=== PATIENT | male | born 1985 | race African-American/Black ===

== ENCOUNTER 2021-07-07 12:47 | Outpatient (CLI) | payer OTHER ==
[2021-07-07 13:53] VITALS: BP 131/90
--- NOTE | 2021-07-07 13:53 | SLEEP CARE CONSULTATION ---
Information from patient questionnaire entered by Solange Salcedo. I have reviewed and concur with the information entered by Solange Salcedo. This document represents the service I personally performed and the decisions made by me, Lorelei Reagan ARNP. History of Present Illness Service Date and Time: 07/07/2021 1247 Reason for Visit: New patient Chief Complaint: reports: Unrefreshed sleep, Snoring, Excessive daytime sleepiness, Observed pauses in breathing, Frequent awakenings at night Date of Onset: 11/2020 Usual bedtime: 2200 Time it takes to fall asleep: 20-30 minutes Snores at night: Yes Observed to quit breathing while asleep: Yes Sleeps alone due to snoring: No Number of times waking at night: 2-3 Reasons for waking at night: reports: Bathroom, Other (unknown reason). denies: Choking, Snoring, Gasping for air Toss, Turn, or Twitch while sleeping: Yes Recalls having dreams: Yes Usually gets out of bed at: 0530; weekends 0700 Feels refreshed in the morning: No Morning headache: No Sleepy or fatigued during the day: Yes (can fall asleep if he is not staying busy) Ever fallen asleep while driving: No Takes day naps: Yes (usually on the weekend only) Dreams during day naps: No Prior sleep studies: No Additional HPI information: I had the pleasure of seeing DEANNE RODRIGUEZ today regarding the possibility of him having a sleep disorder. His current complaints are frequent night awakenings, observed pauses in breathing, snoring and unrefreshed sleep. He states that his girlfriend tells him that he stops breathing once in a while when sleeping. He snores loudly but she can still sleep in same room. She has told him that the snoring seems to be getting louder. He does not feel rested in the mornings. He gets up between 1-3 times at night for the bathroom or no reason. He states that when he does not stay busy he can fall asleep easily. He denies drowsy driving or accidents. He has a history of hypertension, anxiety and depression. 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 Patient is and lives in [place]. Have you smoked in the past 12 months: Yes (vapes) Cigarettes per day (20/pack): 3 (a few a day) Years of smokin Quit date: 06/04/2009 Smoking Pack Years: 0.4 Alcohol use: Yes Alcohol amount and frequency: 1-2, 4 days/week Caffeine use: Yes Caffeine amount and frequency: 1-2/day Family History Family history of sleep disordered breathing: Yes Family Hx Sleep Apnea: Father: Snoring Allergies and Home Medications Drug allergies reviewed: Yes (NKDA) Home medication list reviewed: Yes Allergy and home medication list: Amlodipine 10 mg, daily Chlorthalidone 25 mg, daily Review of Systems Weight gain over past 5 years: 50 Cardiovascular: reports: high blood pressure Respiratory: denies: shortness of breath Gastrointestinal: denies: heartburn Neurological: denies: headaches, head trauma Psychiatric: reports: anxiety, depression Ear/Nose/Throat: denies: injury to nose, tonsillectomy Immunologic: reports: itching. denies: allergies to food or environment Physical Exam Blood Pressure: 131/90 Cuff size: wrist Heart Rate: 90 O2 Saturation: 96 Height: 6 ft 1 in Weight: 255 lb Body Mass Index: 33.6 BMI Classification: Obese Neck circumference: 16.65 (inches) Nostrils: patent to airflow Mouth and throat: narrow oropharynx Soft palate: long Hard palate: normal Uvula: normal Uvula visualization: 50% Mallampati Class II Tongue: enlarged in size with teeth jaime on lateral edges Tonsils: 1+ Neck: normal w/o lymphadenopathy or thyromegaly Heart: regular rate and rhythm Lungs: clear bilaterally Impression and Plan 1. Suspected Obstructive Sleep Apnea-Hypopnea Syndrome, as suggested by a history of loud and irregular snoring, observed cessation of breath while asleep, frequent awakening during the night, unrefreshed sleep, and excessive daytime sleepiness. Narrow oropharynx and obesity are common predisposing factors for obstructive sleep apnea-hypopnea syndrome. I recommend proceeding to polysomnography to confirm the diagnosis and to assess severity. If the patient has significant sleep disordered breathing, a manual CPAP titration study will also be performed to find the optimal treatment pressure. I informed the patient of what the sleep studies involve and after some discussion, obtained agreement to proceed. The pathophysiology of obstructive sleep apnea-hypopnea syndrome was discussed with the patient and health risks of cardiovascular and cerebrovascular disease if not treated. AAS brochure for obstructive sleep apnea-hypopnea syndrome given and reviewed. Risks of drowsy driving discussed in detail and patient advised to avoid long distance driving and to conductor pullman at the first sign of drowsiness. Patient agreed to plan. * Schedule polysomnography +- manual CPAP titration study and return in 1-2 weeks after the study to discuss result and initiate therapy. * Avoid long distance driving or driving when feeling sleepy. * Avoid alcohol, sedative and muscle relaxant around bedtime. * Attempt to lose weight. * Review instructions provided by trained office staff on how to prepare for the sleep study. * Return for follow-up after sleep study completed. Counseling Topics: Weight loss health impact Visit Type: In Office Time Spent with Patient (minutes): 30 Provider Statement: I spent 100% of the Face to Face Visit with the patient with greater than 50% spent counseling the patient and coordination of care.
== END 2021-07-07 12:48 | disposition home or self-care (01) ==
LOC: SC 12:47
PROVIDERS: ATTEND Nurse Practitioner Family
DX: R06.83 Snoring (principal); R06.81 Apnea, not elsewhere classified; G47.10 Hypersomnia, unspecified; G47.8 Other sleep disorders; E66.9 Obesity, unspecified; Z68.33 Body mass index [BMI] 33.0-33.9, adult; F17.290 Nicotine dependence, other tobacco product, uncomplicated
CPT/HCPCS: 99203; 99212

== ENCOUNTER 2021-07-13 09:53 | Outpatient (CLI) | payer OTHER | END 2021-07-13 09:54 | disposition home or self-care (01) | LOC: SC 09:53 | PROVIDERS: ATTEND Nurse Practitioner Family | DX: G47.33 Obstructive sleep apnea (adult) (pediatric) (principal); R09.02 Hypoxemia | CPT/HCPCS: 95806 ==

== ENCOUNTER 2021-07-15 12:39 | Outpatient (CLI) | payer OTHER ==
--- NOTE | 2021-07-15 13:14 | SLEEP CARE CONSULTATION ---
Information from patient questionnaire entered by Solange Salcedo. I have reviewed and concur with the information entered by Solange Salcedo. This document represents the service I personally performed and the decisions made by me, Lorelei Reagan ARNP. History of Present Illness Service Date and Time: 07/15/2021 1239 Initial [place] Sleepiness Scale score: 9 (in 06/2021) Current [place] Sleepiness Scale score: 8 Additional HPI information: DEANNE RODRIGUEZ returns for follow up and results of the recently performed home sleep study. I explained the pathophysiology behind obstructive sleep apnea. We then spent quite a bit of time discussing different treatment options. For mild obstructive sleep apnea, surgery and oral appliance are alternatives to nasal CPAP therapy but in moderate or severe cases, nasal CPAP is the most effective a nd reliable treatment. Because apnea is primarily in supine position, then positional management therapy could be effective. Methods discussed such as positioning with pillows, using a T-shirt with tennis balls in the back, and shown commercial products that have a pillow format on back to prevent supine sleep. I reviewed the impact of weight changes on sleep apnea and strongly recommended losing weight. After some discussion, the patient opted to go with the nasal CPAP therapy. Nasal autoCPAP set at 4-15 cmH20 will be ordered with rationale explained. A manual titration study will be ordered if unable to find optimal pressure with office adjustments. I explained how CPAP machine works with sample devices Respironics Dreamstation and ResWinster [id number] and what to expect when using the machine. Using CPAP every night in order to get used to it was emphasized. Patient advised to put CPAP mask on before getting into bed so as not to fall asleep without CPAP. To assist acclimation to CPAP use, it could also be used for a short time during day while reading or watching TV. The patient was instructed to call the CPAP supplier to discuss any mechanical problem that may occur. If the mask given is uncomfortable or is difficult to keep on through the night even with adjustment, contact the CPAP supplier as many will replace with another mask style if notified before 30 days. If snoring or perceives is not getting enough air or too much air from the machine, notify this office. [facility] patient education PAP tips reviewed and given to patient. Patient counseled not drink alcohol less than 4 hours before bedtime as it can increase snoring and apnea. Patient was cautioned about risks of drowsy driving until sleepiness symptoms resolve. Sleep Study - Results Type of Sleep Study: Home sleep study Prior sleep studies: Yes Year and Where: 06/2021 [facility] Polysomnography/Home Sleep Study results: Physician Impression: The quality of the study is good. The length of the study is adequate (> 240 minutes). Please also see the tabulated and graphic data. 1. Obstructive Sleep Apnea-Hypopnea (ICD-10 G47.33), moderate, with an AHI of 16.7/hr and mabel SaO2 of 71%. During the study, the patient had 80 apneas (79 obstructive, 0 central, 1 mixed) and 52 hypopneas. The longest episode lasted 104.0 seconds. The respiratory events occurred independently of body position (supine AHI was 16.9 and non-supine, 15.18). 2. Hypoxemia (ICD-10 R09.02), moderate, with the lowest oxygen saturation of 71 % and 17.5 minutes with SaO2 under 90%. Baseline oxygen saturation was normal (Average oxygen saturation was 94%). Allergies and Home Medications Home medication list reviewed: Yes (no changes) Review of Systems Review of systems same as previous: Yes (no changes) Physical Exam Heart Rate: 85 O2 Saturation: 98 Height: 6 ft 1 in Weight: 256 lb Body Mass Index: 33.7 BMI Classification: Obese Impression and Plan 1. Obstructive Sleep Apnea-Hypopnea Syndrome, moderate, with lowest oxygen saturation of 71%. Obviously this is the cause of the patients symptoms of unrefreshed sleep, and excessive daytime sleepiness. Positive pressure therapy could benefit hypertension, anxiety and depression. As mentioned above, the patient will be started on nasal autoCPAP therapy with pressure set at 4-15 cmH2 O. A manual titration study will be completed if unable to find optimal treatment pressure with office adjustments. Compliance guidelines also reviewed. A copy of compliance guidelines will be given for reference at check out. 2. Hypoxemia, moderate, with the lowest oxygen saturation of 71 % and 17.5 minutes with SaO2 under 90%. His baseline oxygen saturation was normal with an average oxygen saturation of 94%. * Nasal auto CPAP therapy, pressure at 4-15 cm H2O. * Attempt to lose weight. * Avoid alcohol consumption near bedtime. * The patient is again cautioned about driving until sleepiness completely resolves. * Return one month after CPAP obtained. I will assess response to therapy and compliance at that time. Counseling Topics: Weight loss health impact Visit Type: In Office Time Spent with Patient (minutes): 20 Provider Statement: I spent 100% of the Face to Face Visit with the patient with greater than 50% spent counseling the patient and coordination of care.
== END 2021-07-15 12:40 | disposition home or self-care (01) ==
LOC: SC 12:39
PROVIDERS: ATTEND Nurse Practitioner Family
DX: G47.33 Obstructive sleep apnea (adult) (pediatric) (principal); R09.02 Hypoxemia; E66.9 Obesity, unspecified; Z68.33 Body mass index [BMI] 33.0-33.9, adult
CPT/HCPCS: 99212; 99213

== ENCOUNTER 2021-12-28 13:56 | Outpatient (CLI) | payer OTHER ==
--- NOTE | 2021-12-28 14:20 | SLEEP CARE CONSULTATION ---
Information from patient questionnaire entered by Michael Peraza MA. I have reviewed and concur with the information entered by Michael Peraza MA. This document represents the service I personally performed and the decisions made by , Lorelei Reagan ARNP. History of Present Illness Service Date and Time: 12/28/2021 1356 Previous diagnosis: Moderate, Obstructive Sleep Apnea-Hypopnea Syndrome AHI: 16.7 (in 2020) Reason for follow up: first compliance (SET UP 09/14/2021., RESMED, ) Equipment type: CPAP Equipment obtained from: Other ([facility]; got initial supplies) Mask style: Nasal pillows Mask brand: Resmed Backup mask available: Yes (just got new mask set) Last cushion change: 1 week ago Prior sleep studies: Yes Year and Where: 06/2021 [email or web address] Type of Sleep Study: Home sleep study HPI additional information: DEANNE RODRIGUEZ was diagnosed to have moderate, AHI 16.7, obstructive sleep apnea- hypopnea syndrome and returned today for CPAP therapy first compliance follow- up. Sleep Study - Results Type of Sleep Study: Home sleep study Prior sleep studies: Yes Year and Where: 06/2021 [email or web address] CPAP Compliance Data - Data Reviewed with Patient Average duration of nightly device use: 6 HOURS 42 MINUTES Compliance rate %: 97 Current pressure setting (cmH2O): 4-15 (median 8.6, avg 11.1, max 12.7) Average residual AHI: 3.6 Central apnea: .6 Obstructive apnea: 2.6 Average large leak: 1.3 Subjective Missed days of use due to: reports: other Patient concerns: reports: dry mouth, nose, throat (occasional). denies: aerophagia, mask discomfort, air blowing in eyes, mask leak noise, condensation in mask/hose, nasal congestion, epistaxis Observed to snore while using device: No Current pressure setting perceived as: comfortable On therapy, patient: reports: sleeping better, awakening more refreshed, being more awake and alert during the day, more rested overall. denies: drowsiness while driving Initial [place] Sleepiness Scale score: 9 (in 06/2021) Current [place] Sleepiness Scale score: 10 (12/2021) Allergies and Home Medications Home medication list reviewed: Yes (no changes) Review of Systems Review of systems same as previous: Yes (no changes) Physical Exam Vital signs obtained and entered by: CORINA NDIAYE Blood Pressure: 120/73 (LEFT, PULSE 84, RESP 16, ) Cuff size: wrist Heart Rate: 76 O2 Saturation: 96 (PAPER MASK) Height: 6 ft 1 in Weight: 246 lb (PT CLOTHES) Body Mass Index: 32.4 BMI Classification: Obese Neck circumference: 17 (INCHES) Impression and Plan 1. Obstructive Sleep Apnea-Hypopnea Syndrome, moderate, with good treatment compliance and good apnea control. On CPAP therapy, the patient has better sleep quality and is more rested overall. The patients pressure will be changed to autoCPAP 10-13 cmH20 to reflect pressures being used. Patient advised to contact me if pressure change is uncomfortable so that it can be adjusted. Goals for apnea control discussed. Patient's apnea severity and rationale for treatment to reduce apnea, improve sleep quality and reduce cardiovascular and cer ebrovascular events was reviewed. I also reviewed the benefit of consistent device use of CPAP for hypertension, depression and anxiety. Patient was encouraged to try to lose weight to help reduce apneas and improve his overall health. * Change auto CPAP pressure to 10-13 cmH2O * Notify me if snoring with mask or feeling that the pressure is too much or too little * Attempt to lose weight * Call this office if any problems using CPAP * Return for follow up in 1-2 months, or sooner if concerns arise Counseling Topics: Spare mask, Weight loss health impact Visit Type: In Office Time Spent with Patient (minutes): 20 Provider Statement: I spent 100% of the Face to Face Visit with the patient with greater than 50% spent counseling the patient and coordination of care.
[2021-12-28 14:23] VITALS: BP 120/73
== END 2021-12-28 13:57 | disposition home or self-care (01) ==
LOC: SC 13:56
PROVIDERS: ATTEND Nurse Practitioner Family
DX: G47.33 Obstructive sleep apnea (adult) (pediatric) (principal); E66.9 Obesity, unspecified; Z68.32 Body mass index [BMI] 32.0-32.9, adult
CPT/HCPCS: 99212; 99213

== ENCOUNTER 2022-02-15 08:24 | Outpatient (CLI) | payer OTHER ==
[2022-02-15 08:50] VITALS: BP 132/78
--- NOTE | 2022-02-15 08:50 | SLEEP CARE CONSULTATION ---
Information from patient questionnaire entered by Linette Santiago. I have reviewed and concur with the information entered by Linette Santiago. This document represents the service I personally performed and the decisions made by , Lorelei Reagan ARNP. History of Present Illness Service Date and Time: 02/15/2022 0824 Previous diagnosis: Moderate, Obstructive Sleep Apnea-Hypopnea Syndrome AHI: 16.7 (in 2020) Reason for follow up: other (7 WEEK FOLLOW UP -PRESSURE CHANGE ) Equipment type: CPAP Equipment obtained from: Other ([facility]; getting supplies) Mask style: Nasal pillows Mask brand: Resmed Backup mask available: Yes (old mask) Last cushion change: 2 weeks Prior sleep studies: Yes Year and Where: 06/2021 [employer] Type of Sleep Study: Home sleep study HPI additional information: DEANNE RODRIGUEZ was diagnosed to have moderate, AHI 16.7, obstructive sleep apnea- hypopnea syndrome and returned today for CPAP therapy 7 week with pressure change follow-up. Sleep Study - Results Type of Sleep Study: Home sleep study Prior sleep studies: Yes Year and Where: 06/2021 [employer] CPAP Compliance Data - Data Reviewed with Patient Average duration of nightly device use: 7 hours 0 minutes Compliance rate %: 97 Current pressure setting (cmH2O): 10-13 Average residual AHI: 3.2 Central apnea: 0.7 Obstructive apnea: 2.2 Average large leak: 2.8 L/min Subjective Missed days of use due to: reports: travel Patient concerns: reports: other (Machine records; tito not reflecting use). denies: aerophagia, mask discomfort, air blowing in eyes, mask leak noise, condensation in mask/hose, nasal congestion, dry mouth, nose, throat, epistaxis Observed to snore while using device: No Current pressure setting perceived as: comfortable On therapy, patient: reports: sleeping better, awakening more refreshed, being more awake and alert during the day, more rested overall. denies: drowsiness while driving Initial [place] Sleepiness Scale score: 9 (in 06/2021) Current [place] Sleepiness Scale score: 9 Allergies and Home Medications Known drug allergies: Yes (NONE ) Drug allergies reviewed: Yes Home medication list reviewed: Yes (no changes) Review of Systems Review of systems same as previous: Yes (no changes) Physical Exam Vital signs obtained and entered by: Chavo SANTIAGO MA Blood Pressure: 132/78 (MANUAL) Cuff size: LARGE CUFF Heart Rate: 78 O2 Saturation: 98 Height: 6 ft 1 in Weight: 248 lb Body Mass Index: 32.7 BMI Classification: Obese Impression and Plan 1. Obstructive Sleep Apnea-Hypopnea Syndrome, moderate, with good treatment compliance and good apnea control. On CPAP therapy, the patient has better sleep quality and is more rested overall. He has no issues or concerns like oral dryness, nasal congestion, skin irritation, epistaxis or aerophagia. He states he has not been able to get his phone tito to [facility] with his machine. I advised him to call their customer service number to help him get it to [facility]. He voiced understanding. Patient's apnea severity and rationale for treatment to reduce apnea, improve sleep quality and reduce cardiovascular and cerebrovascular events was reviewed. I also reviewed the benefit of consistent device use of CPAP for hypertension, depression and anxiety. 2. Obesity, unspecified. Currently patients BMI is 34.7. Obesity increases the risk of apnea, CPAP pressure requirements and overall health risks especially cardiovascular and diabetes. Thus patient is advised to lose weight. Weight loss can be done with reducing portion size, reducing refined foods and balancing content with vegetables, fruit and whole grain foods. In addition, patient encouraged to get regular exercise. * Continue auto CPAP pressure at 10-13 cmH2O * Notify me if snoring with mask or feeling that the pressure is too much or too little * Attempt to lose weight * Call this office if any problems using CPAP * Return for follow up in 3 months, or sooner if concerns arise Counseling Topics: Spare mask, Weight loss health impact Visit Type: In Office Time Spent with Patient (minutes): 20 Provider Statement: I spent 100% of the Face to Face Visit with the patient with greater than 50% spent counseling the patient and coordination of care.
== END 2022-02-15 08:25 | disposition home or self-care (01) ==
LOC: SC 08:24
PROVIDERS: ATTEND Nurse Practitioner Family
DX: G47.33 Obstructive sleep apnea (adult) (pediatric) (principal); E66.9 Obesity, unspecified; Z68.34 Body mass index [BMI] 34.0-34.9, adult
CPT/HCPCS: 99212; 99213

== ENCOUNTER 2022-05-18 08:57 | Outpatient (CLI) | payer OTHER ==
[2022-05-18 09:48] VITALS: BP 111/76
--- NOTE | 2022-05-18 09:48 | SLEEP CARE CONSULTATION ---
Information from patient questionnaire entered by Michael Peraza MA. I have reviewed and concur with the information entered by Michael Peraza MA. This document represents the service I personally performed and the decisions made by , Lorelei Reagan ARNP. History of Present Illness Service Date and Time: 05/18/2022 0857 Previous diagnosis: Moderate, Obstructive Sleep Apnea-Hypopnea Syndrome AHI: 16.7 Reason for follow up: three month (RESMED, 09/14/2021, ) Equipment type: CPAP Equipment obtained from: Other ([facility]; getting supplies as needed) Mask style: Nasal pillows Mask brand: Resmed (Airfit [id number]) Backup mask available: Yes (other mask) Last cushion change: 2 days Prior sleep studies: Yes Year and Where: 06/2021 [facility] Type of Sleep Study: Home sleep study HPI additional information: DEANNE RODRIGUEZ was diagnosed to have moderate, AHI 16.7, obstructive sleep apnea- hypopnea syndrome and returned today for CPAP therapy three month follow-up. Sleep Study - Results Type of Sleep Study: Home sleep study Prior sleep studies: Yes Year and Where: 06/2021 [facility] CPAP Compliance Data - Data Reviewed with Patient Current pressure setting (cmH2O): 10-13 Compliance data discussion: Compliance info from 11/17/21 to 02/14/22 showing 96%, using it 7 hours with pressure at 10-13 cmH2O and residual AHI of 3.3. 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 denies: drowsiness while driving Initial [place] Sleepiness Scale score: 9 (in 06/2021) Current [place] Sleepiness Scale score: 9 (05/18/2022) Allergies and Home Medications Home medication list reviewed: Yes (no changes) Review of Systems Review of systems same as previous: Yes (no changes) Physical Exam Vital signs obtained and entered by: CORINA NDIAYE Blood Pressure: 111/76 (RESP 16, PULSE 84, LEFT) Cuff size: wrist Heart Rate: 84 O2 Saturation: 97 Height: 6 ft 1 in Weight: 240 lb (UNIFORM AND BOOTS) Weight change since last visit: 8 lb loss Body Mass Index: 31.6 BMI Classification: Obese Impression and Plan 1. Obstructive Sleep Apnea-Hypopnea Syndrome, moderate, with unknown treatment compliance and unknown apnea control. On CPAP therapy, the patient has better sleep quality and is more rested overall. Patient forgot to bring his SD card. We were able to get some compliance information good until February 2022. He will bring in his memory card tomorrow morning for us to get his current compliance information. Patient denies problems with oral dryness, nasal congestion, epistaxis, skin irritation or aerophagia. Patient's apnea severity and rationale for treatment to reduce apnea, improve sleep quality and reduce cardiovascular and cerebrovascular events was reviewed. I also reviewed the benefit of consistent device use of CPAP for hypertension, depression and anxiety. 2. Obesity, unspecified. Patient has lost weight. Patient has been watching what he eats and is regularly exercising. Currently patients BMI is 31.6. Obesity increases the risk of apnea, CPAP pressure requirements and overall health risks especially cardiovascular and diabetes. Thus patient is advised to continue to try to lose weight. * Continue auto CPAP pressure at 10-13 cmH2O * Notify me if snoring with mask or feeling that the pressure is too much or too little * Attempt to lose weight * Call this office if any problems using CPAP * Return for follow up in 6 months, or sooner if concerns arise Counseling Topics: Spare mask, Weight loss health impact Visit Type: In Office Time Spent with Patient (minutes): 20 Provider Statement: I spent 100% of the Face to Face Visit with the patient with greater than 50% spent counseling the patient and coordination of care.
== END 2022-05-18 08:58 | disposition home or self-care (01) ==
LOC: SC 08:57
PROVIDERS: ATTEND Nurse Practitioner Family
DX: G47.33 Obstructive sleep apnea (adult) (pediatric) (principal); E66.9 Obesity, unspecified; Z68.31 Body mass index [BMI] 31.0-31.9, adult
CPT/HCPCS: 99212; 99213